=== PATIENT | female | born 1940 | race Caucasian/White ===

== ENCOUNTER 2020-02-14 09:57 | Outpatient (CLI) | payer OTHER, MEDICARE ==
[~2020-02-14 09:57] MED LIST: ASPI-650 PO; LISI-170 PO; MULT-642 PO; NAPR-685 PO; SIMV10TA18 PO; TRAM50TA2 PO; TRIA1TAB3 PO
[2020-02-14] MEDS ORDERED: LISI1TAB23 PO (10:24)
[2020-02-14] MEDS ORDERED: [UNRECOGNIZED DRUG - OTHER] PO (10:24)
[2020-02-14] MEDS ORDERED: FLUO10CA14 PO (10:24)
[2020-02-14] MEDS ORDERED: NAPR220C2 PO (10:24)
[2020-02-14] MEDS ORDERED: OMEP40CA42 PO (10:24)
[2020-02-14] MEDS ORDERED: EZET10TA70 PO (10:24)
[2020-02-14] MEDS ORDERED: ACET325T14 PO (10:32)
[2020-02-14] MEDS ORDERED: ALBU8.5H8 INH (10:34)
[2020-02-14 11:00] LABS: ALANINE AMINOTRANSFERASE 41 U/L (12-78); ALBUMIN 3.5 g/dL (3.4-5.0); ANION GAP 8 mmol/L (5-15); CALCIUM 8.6 mg/dL (8.5-10.1); CHLORIDE 107 mmol/L (98-107); CREATININE 0.86 mg/dL (0.55-1.02)
[2020-02-14 11:03] LABS: ALKALINE PHOSPHATASE 115 U/L (45-117); BILIRUBIN,TOTAL 0.5 mg/dL (0.2-1.0); TOTAL PROTEIN 7.1 g/dL (6.4-8.2)
== END 2020-02-14 23:59 | disposition home or self-care (01) ==
LOC: STAR 09:57
PROVIDERS: ATTEND Orthopaedic Surgery
DX: Z01.818 Encounter for other preprocedural examination (principal); T84.84XA Pain due to internal orthopedic prosthetic devices, implants and grafts, initial encounter; R94.31 Abnormal electrocardiogram [ECG] [EKG]; Z96.652 Presence of left artificial knee joint
CPT/HCPCS: 36415; 80053; 87081; 93005

== ENCOUNTER 2020-02-18 05:17 | Observation (INO) | payer MEDICARE ==
[~2020-02-18] VITALS: Ht 152.4 cm; Wt 84.3 kg
[~2020-02-18 05:17] MED LIST changes: +ACET325T14 PO; +ALBU8.5H8 INH; +EZET10TA70 PO; +FLUO10CA14 PO; +LISI1TAB23 PO; +NAPR220C2 PO; +OMEP40CA42 PO; +[UNRECOGNIZED DRUG - OTHER] PO
[2020-02-18] MEDS ORDERED: LACTATED RINGERS 1,000 ML IV SCH (05:55)
[2020-02-18 06:00] VITALS: BP 150/90
[2020-02-18] MEDS ORDERED: CHLORHEXIDINE 15 ML UDC MM ONE (06:00)
[2020-02-18] MEDS ORDERED: BACITRACIN 50,000 UNIT ONE (06:24)
[2020-02-18] MEDS ORDERED: FENTANYL PF 100 MCG/2ML ONE ×4 (06:30→08:25)
[2020-02-18] MEDS ORDERED: MIDAZOLAM 1 MG/ML, 2ML ONE (06:30)
[2020-02-18] MEDS ORDERED: TRANEXAMIC ACID 100 MG/ML, 10ML ONE (07:03)
[2020-02-18] MEDS ORDERED: LIDOCAINE-MPF 2% ,5ML ONE (07:08)
[2020-02-18] MEDS ORDERED: DEXAMETHASONE 4 MG/ML, 1ML ONE (07:08)
[2020-02-18] MEDS ORDERED: ONDANSETRON 2MG/ML, 2ML ONE (07:08)
[2020-02-18] MEDS ORDERED: KETOROLAC 30 MG/1 ML ONE (07:08)
[2020-02-18] MEDS ORDERED: PROPOFOL 10 MG/ML, 20ML ONE (07:08)
[2020-02-18] MEDS ORDERED: BUPIVACAINE/PF 0.25% ONE (07:08)
[2020-02-18] MEDS ORDERED: CEFAZOLIN 1,000 MG ONE (07:08)
[2020-02-18] MEDS ORDERED: LABETALOL 5MG/ML, 20ML IV PRN (07:30)
[2020-02-18] MEDS ORDERED: PROMETHAZINE 25 MG/ML, 1ML IVPush PRN (07:30)
[2020-02-18] MEDS ORDERED: LORazepam 2 MG/ML, 1ML IVPush PRN (07:30)
[2020-02-18] MEDS ORDERED: OXYcodone 5 MG/5 ML ORAL.SOL UDC PO PRN (07:30)
[2020-02-18] MEDS ORDERED: ALBUTEROL SULFATE 2.5 MG/3 ML NPPB PRN (07:30)
[2020-02-18] MEDS ORDERED: MEPERIDINE/PF 25MG/0.5ML IVPush PRN (07:30)
[2020-02-18] MEDS ORDERED: hydrALAzine 20 MG/ML, 1ML IV PRN (07:30)
[2020-02-18] MEDS ORDERED: ACETAMINOPHEN 325 MG TABLET PO PRN (07:30)
[2020-02-18] MEDS ORDERED: HYDROmorphone 1 MG/ML, 1ML INJ IVPush PRN (07:30)
[2020-02-18] MEDS ORDERED: BUPIVACAINE/PF 0.5% ONE (07:55)
[2020-02-18] MEDS ORDERED: EPINEPHRINE 1 MG/ML, 1ML ONE (07:58)
[2020-02-18] MEDS: FENTANYL PF 100 MCG/2ML IV PRN ×4 (08:15→08:47)
[2020-02-18] MEDS ORDERED: ACETAMINOPHEN 650 MG/20.3 ML UDC ONE (08:25)
[2020-02-18] MEDS ORDERED: OXYcodone 5 MG/5 ML ORAL.SOL UDC ONE (08:26)
[2020-02-18] MEDS ORDERED: ALBUTEROL SULFATE 2.5 MG/3 ML ONE (08:29)
[2020-02-18] MEDS ORDERED: HYDROmorphone 1 MG/ML, 1ML INJ ONE (08:51)
[2020-02-18] MEDS ORDERED: KETOROLAC 30 MG/1 ML IVPush SCH (10:00)
[2020-02-18] MEDS ORDERED: ACETAMINOPHEN 500 MG TABLET PO SCH (10:00)
[2020-02-18] MEDS ORDERED: ONDANSETRON ODT 4 MG PO PRN (10:00)
[2020-02-18] MEDS ORDERED: OXYcodone IR 5MG TABLET PO PRN (10:30)
[2020-02-18] MEDS ORDERED: DOCUSATE 100 MG CAPSULE PO SCH (21:00)
[2020-02-18] MEDS ORDERED: SODIUM CHLORIDE FLUSH 10ML SYR IVF SCH (21:00)
== END 2020-02-18 13:36 | disposition home or self-care (01) ==
LOC: OUT 05:17 → 4NE 09:50 → OUT 11:47 → DCLOUNGE 13:29
PROVIDERS: ADMIT Orthopaedic Surgery; ATTEND Orthopaedic Surgery
DX: Z03.818 Encounter for observation for suspected exposure to other biological agents ruled out (principal); M17.12 Unilateral primary osteoarthritis, left knee; T84.84XA Pain due to internal orthopedic prosthetic devices, implants and grafts, initial encounter; M24.662 Ankylosis, left knee; M11.20 Other chondrocalcinosis, unspecified site; K21.9 Gastro-esophageal reflux disease without esophagitis; G47.30 Sleep apnea, unspecified; M81.0 Age-related osteoporosis without current pathological fracture; J45.909 Unspecified asthma, uncomplicated; E66.9 Obesity, unspecified; I10 Essential (primary) hypertension; E78.5 Hyperlipidemia, unspecified; Y83.1 Surgical operation with implant of artificial internal device as the cause of abnormal reaction of the patient, or of later complication, without mention of misadventure at the time of the procedure; Z87.891 Personal history of nicotine dependence; Z79.899 Other long term (current) drug therapy
CPT/HCPCS: 27334; 27599; 36415; 80053; 87081; 87635; 88307; 93005; 94640; 96374; 97110; 97161; C1713; C1776; G0378; J0171; J0690; J1100; J1885; J2250; J2405; J2704; J3010; J3490; J7120; J7613; S0020